=== PATIENT | male | born 1985 | race Caucasian/White ===

== ENCOUNTER 2016-09-15 10:30 | Outpatient (CLI) ==
[2016-08-11 09:48] VITALS: BMI 27.8
--- NOTE | 2016-09-15 11:39 | DI ---
Exam: Three views sacrum and coccyx Clinical indication: Low back pain. Findings / impression: There is no radiographic evidence of fracture or other significant bony abno rmalities.
--- NOTE | 2016-09-15 11:40 | DI ---
Exam: Five views lumbar the spine, including bilateral oblique. Clinical indication: Low back pain. Findings: There is normal alignment of the lumbosacral spine. The disc spaces are well maintained. There are no fractures, dislocations or other significant bony abnormalities. The visualized soft tissues ar e unremarkable. Impression: Negative radiographs of the lumbar spine.
[2016-09-15 12:30] LABS: BASOPHILS % (AUTO) 0.3 % (0.0-3.0); EOSINOPHILS # (AUTO) 0.2 K/ul (0.0-0.7); EOSINOPHILS % (AUTO) 2.5 % (0.0-7.0); HEMATOCRIT 49.5 % (42.0-52.0); HEMOGLOBIN 16.8 g/dl (14.0-18.0); IMMATURE GRANULOCYTE % (AUTO) 0.3 % (0.0-5.0); LYMPHOCYTES # (AUTO) 1.9 K/uL (0.60-3.4); LYMPHOCYTES % (AUTO) 31.1 (10.0-50.0); MEAN CORPUSCULAR HEMOGLOBIN 29.5 pg (27.0-31.0); MEAN CORPUSCULAR HGB CONC 33.9 (31.8-35.4); MEAN CORPUSCULAR VOLUME 86.8 fl (80.0-94.0); MONOCYTES # (AUTO) 0.5 K/uL (0.4-2.0); MONOCYTES % (AUTO) 7.5 (0-10); NEUTROPHILS # (AUTO) 3.5 K/ul (2.0-6.9); NEUTROPHILS % (AUTO) 58.3; PLATELET COUNT 218 10^3/uL (140-440); WHITE BLOOD COUNT 5.99 K/ul (4.2-10.2)
[2016-09-15 13:44] LABS: ALBUMIN 4.4 g/dL (3.4-5.0); ALBUMIN/GLOBULIN RATIO 1.19; ANION GAP 14.4; BILIRUBIN,TOTAL 0.65 mg/dL (0.00-1.20); BUN/CREATININE RATIO 10.09; CALCIUM 10.1 mg/dL (8.2-10.2); CREATININE 1.09 mg/dL (0.60-1.10); POTASSIUM 4.4 mmol/L (3.5-5.1); TOTAL PROTEIN 8.1 g/dL (6.4-8.2)
== END 2016-09-15 10:31 | disposition home or self-care (01) ==
LOC: LAB 10:30
PROVIDERS: ATTEND Nurse Practitioner Family
DX: M54.5 Low back pain (principal)
CPT/HCPCS: 36415; 80053; 85025

== ENCOUNTER 2016-09-15 11:26 | Emergency (ER) ==
[2016-09-15 11:35] VITALS: BP 133/84; TEMP 97.4; BMI 31.8
--- NOTE | 2016-09-15 12:36 | CT ---
EXAM: CT lumbar spine without contrast. HISTORY: Back pain following lifting injury. Initial presentation. COMPARISON: Radiograph earlier the same day. TECHNIQUE: Multiple axial images of the lumbar spine were obtained without intravenous contrast. I mages were reformatted in the sagittal and coronal planes. FINDINGS: Mild left convex curvature centered in the mid lumbar spine. There is approximately 0.4 cm retrolisthesis of L5 on S1 with moderate disc space narrowing at this level. Alignment is otherw ise normal. Vertebral body and disc heights are otherwise maintained. No fracture detected. Broad -based disc bulge and facet arthropathy with flattening of the ventral thecal sac at L4-5. Disc ost eophyte formation and facet arthropathy with mild right and moderate left neural foraminal narrowing at L5-S1 Paravertebral soft tissues without acute abnormality. IMPRESSION: 1. No acute fracture. 2. Lower lumbar degenerative changes as described. 3. Left convex midlumbar curvature.
--- NOTE | 2016-09-15 13:55 | ED.PDOC ---
General ED Provider: Dr. VIBHA CAN Chief Complaint: Back Pain Stated Complaint: low back pain Time Seen by Physician: 11:30 (seen with meryl) Mode of Arrival: Walk-In Information Source: Patient Exam Limitations: No limitations Nursing and Triage Documentation Reviewed and Agree: Yes Musculoskeletal Complaint Exam - Back Pain Complaint/Exam Mechanism of Injury: Reports: No known trauma Symptoms Are: Still present Timing: Constant Episodes Lasting: Hours Initial Severity: Moderate Current Severity: Moderate Character: Reports: Throbbing, Spasmodic Aggravating: Reports: Movements, Lifting, Bending Alleviating: Reports: Rest, Position Associated Signs and Symptoms: Denies: Swelling, Redness, Bruising, Fever, Weakness, Numbness, Tingling, Abdominal pain, Flank pain, Bladder incontinence, Bowel incontinence, Weight loss, Pain with weight bearing Related History: Reports: Similar episode TAD Risk Factors: Reports: None Cauda Equina Risk Factors: Reports: None Epidural Abcess Risk Factors: Reports: None Related Surgical History: Reports: None Focal Tenderness: No Paraspinal Muscle Tenderness: No Paraspinal Muscle Spasm: No Scoliosis: No Lordosis: No Kyphosis: No SLR Test: Right Negative, Left Negative Hip Motion Testing Pain: Right Negative, Left Negative Focal Weakness: Present: None Focal Sensory Loss: Present: None Gait: Present: Normal Differential Diagnoses: Fracture, Strain, Sprain Review of Systems - Review Of Systems Constitutional: Reports: No symptoms Eyes: Reports: No symptoms Ears, Nose, Mouth, Throat: Reports: No symptoms Respiratory: Reports: No symptoms Cardiac: Reports: No symptoms GI: Reports: No symptoms : Reports: No symptoms Musculoskeletal: Reports: Back pain Skin: Reports: No symptoms Neurological: Reports: No symptoms Endocrine: Reports: No symptoms Hematologic/Lymphatic: Reports: No symptoms All Other Systems: Reviewed and Negative Past Medical History - Past Medical History Endocrine: Reports: None Cardiovascular: Reports: Hypertension Respiratory: Reports: None Hematological: Reports: None Gastrointestinal: Reports: None Genitourinary: Reports: None Neuro/Psych: Reports: None Musculoskeletal: Reports: None Cancer: Reports: None - Surgical History General Surgical History: Reports: Back Surgery - Family History Family History: Reports: Unknown - Social History Smoking Status: Current every day smoker, Light tobacco smoker Hx Substance Use: No Alcohol Screening: None - Immunizations Tetanus Shot up to Date: Yes Physical Exam - Physical Exam Appearance: Well-appearing, No pain distress, Well-nourished Eyes: ASHLEY, EOMI, Conjunctiva clear ENT: Ears normal, Nose normal, Oropharynx normal Respiratory: Airway patent, Breath sounds clear, Breath sounds equal, Respirations nonlabored Cardiovascular: RRR, Pulses normal, No rub, No murmur GI/: Soft, Nontender, No masses, Bowel sounds normal, No Organomegaly Musculoskeletal: Normal strength, ROM intact, No edema, No calf tenderness Skin: Warm, Dry, Normal color Neurological: Sensation intact, Motor intact, Reflexes intact, Cranial nerves intact, Alert, Oriented Psychiatric: Affect appropriate, Mood appropriate Critical Care Note - Critical Care Note Total Time (mins): 0 Course - Course Orders, Labs, Meds: Orders Category Date Time Status CT LUMBAR SPINE W/O CONTRAST Stat RADS 09/15/16 11:55 Completed Vital Signs: Temp Pulse Resp BP Pulse Ox 09/15/16 11:27 97.4 F L 74 20 133/84 96 Departure - Departure Time of Disposition: 13:55 Disposition: HOME SELF-CARE Discharge Problem: Backache Instructions: Low Back Strain (ED) Condition: Good Pt referred to PMD for follow-up: No Additional Instructions: Please call your Family Physician as soon as possible to schedule a follow-up appointment. Allergies/Adverse Reactions: Allergies ketorolac [From Toradol] Adverse Reaction (Verified 08/11/16 09:48) Home Medications: Ambulatory Orders Losartan Potassium [Cozaar] 100 mg PO DAILY 08/20/14 Cyclobenzaprine HCl [Flexeril] 5 mg PO TID PRN #15 tablet 08/11/16 Naproxen [Naprosyn] 500 mg PO Q12HR PRN #30 tablet 08/11/16
== END 2016-09-15 14:11 | disposition home or self-care (01) ==
LOC: ED 11:26
DX: M54.5 Low back pain (principal); F17.210 Nicotine dependence, cigarettes, uncomplicated
CPT/HCPCS: 36415; 80053; 85025; 99282

== ENCOUNTER 2017-12-24 09:54 | Emergency (ER) | payer OTHER ==
[2017-12-24 09:59] VITALS: BP 145/80; TEMP 97.9; BMI 31.6
--- NOTE | 2017-12-24 10:45 | DI ---
EXAM: Radiographs, right foot HISTORY: Initial presentation for right foot trauma. COMPARISON: None available. TECHNIQUE: Three views. FINDINGS: Bone mineralization is normal. There is no fracture or dislocation. The joint spaces are maintained. Moderate spurring seen at the dorsal aspect of the talonavicular joint. No focal soft tissue abnormality is seen. IMPRESSION: No fracture or dislocation.
--- NOTE | 2017-12-24 11:02 | ED.PDOC ---
General ED Provider: Dr. VIBHA CAN Chief Complaint: Toe Pain/Injury Stated Complaint: big toe injury Time Seen by Physician: 10:00 (blunt force) Mode of Arrival: Walk-In Information Source: Patient Exam Limitations: No limitations Primary Care Provider: CLARISSA BREAUX Nursing and Triage Documentation Reviewed and Agree: Yes (seen with pt's nirse at all times ) Reviewed sepsis parameters & appropriate labs ordered?: Yes System Inflammatory Response Syndrome: Not Applicable Sepsis Protocol: For patient's 13 years and over: Temp is 96.8 and below OR 101 and greater Pulse >90 BPM Resp >20/minute Acutely Altered Mental Status Are patient's symptoms suggestive of a new infection, such as: -Pneumonia -Skin, Soft Tissue -Endocarditis -UTI -Bone, Joint Infection -Implantable Device -Acute Abdominal Infection -Wound Infection -Meningitis -Blood Stream Catheter Infection -Unknown System Inflammatory Response Syndrome: Not Applicable Musculoskeletal Complaint Exam - Ankle/Foot Complaint/Exam Location of Injury: Reports: Right, Toe #1 Mechanism of Injury: Reports: Trauma (blunt force) Onset/Duration: 1 day ago Symptoms Are: Reports: Still present Onset of Pain: Reports: Immediate Initial Severity: Mild Current Severity: Mild Location: Reports: Discrete Character: Reports: Aching Alleviating: Reports: Rest Aggravating: Reports: Movement Able to Bear Weight: Yes Associated Signs and Symptoms: Denies: Swelling, Redness, Bruising, Fever, Weakness, Numbness, Tingling Gout Risk Factors: Reports: None Related Surgical History: Reports: None Lower Extremity Findings: Absent: Swelling, Ecchymosis Achilles Tendon Abnormality: No Differential Diagnosis: Closed Fracture Review of Systems - Review Of Systems Constitutional: Reports: No symptoms Eyes: Reports: No symptoms Ears, Nose, Mouth, Throat: Reports: No symptoms Respiratory: Reports: No symptoms Cardiac: Reports: No symptoms GI: Reports: No symptoms : Reports: No symptoms Musculoskeletal: Reports: Other (foot pain ) Skin: Reports: No symptoms Neurological: Reports: No symptoms Endocrine: Reports: No symptoms Hematologic/Lymphatic: Reports: No symptoms All Other Systems: Reviewed and Negative Past Medical History - Past Medical History Previously Healthy: Yes Endocrine: Reports: None Cardiovascular: Reports: Hypertension Respiratory: Reports: None Hematological: Reports: None Gastrointestinal: Reports: None Genitourinary: Reports: None Neuro/Psych: Reports: None Musculoskeletal: Reports: None Cancer: Reports: None - Surgical History General Surgical History: Reports: Back Surgery - Family History Family History: Reports: Unknown - Social History Smoking Status: Current every day smoker, Light tobacco smoker Hx Substance Use: No Alcohol Screening: None Physical Exam - Physical Exam Appearance: Well-appearing, No pain distress, Well-nourished Eyes: ASHLEY, EOMI, Conjunctiva clear ENT: Ears normal, Nose normal, Oropharynx normal Respiratory: Airway patent, Breath sounds clear, Breath sounds equal, Respirations nonlabored Cardiovascular: RRR, Pulses normal, No rub, No murmur GI/: Soft, Nontender, No masses, Bowel sounds normal, No Organomegaly Musculoskeletal: Normal strength, ROM intact, No edema, No calf tenderness Skin: Warm, Dry, Normal color Neurological: Sensation intact, Motor intact, Reflexes intact, Cranial nerves intact, Alert, Oriented Psychiatric: Affect appropriate, Mood appropriate Interpretation - Radiology Interpretation Radiology Interpretation By: Radiologist Radiology Results: No acute changes Critical Care Note - Critical Care Note Total Time (mins): 0 Course - Course Orders, Labs, Meds: Orders Category Date Time Status FOOT, RIGHT 3 VIEWS Stat RADS 12/24/17 10:05 Completed Vital Signs: Temp Pulse Resp BP Pulse Ox 12/24/17 09:55 97.9 F 85 18 145/80 H 98 Departure - Departure Time of Disposition: 11:02 Disposition: HOME SELF-CARE Discharge Problem: Pain in toe Instructions: Metatarsalgia (DC) Condition: Good Pt referred to PMD for follow-up: Yes IPMP verified?: No Allergies/Adverse Reactions: Allergies hydrocodone Adverse Reaction (Verified 12/24/17 09:59) ketorolac [From Toradol] Adverse Reaction (Verified 12/24/17 09:59) Home Medications: Ambulatory Orders Losartan Potassium [Cozaar] 100 mg PO DAILY 08/20/14 Ibuprofen [Motrin] 800 mg PO Q8H 12/24/17
== END 2017-12-24 11:20 | disposition home or self-care (01) ==
LOC: ED 09:54
DX: M79.674 Pain in right toe(s) (principal); W22.8XXA Striking against or struck by other objects, initial encounter; F17.210 Nicotine dependence, cigarettes, uncomplicated
CPT/HCPCS: 99283